=== PATIENT | female | born 1975 | race Two or more races ===

== ENCOUNTER 2017-11-02 07:44 | Outpatient (CLI) | payer OTHER ==
[~2017-11-02] VITALS: Ht 162.6 cm; Wt 108.9 kg
[2017-11-02] MEDS ORDERED: CEFUROXIME500 MG PO (09:57)
[2017-11-02] MEDS ORDERED: FLONASE16 GM NASAL (09:57)
== END 2017-11-02 08:00 | disposition home or self-care (01) ==
LOC: OFIC 805 07:44
DX: J32.8 Other chronic sinusitis (principal); J34.2 Deviated nasal septum; R43.8 Other disturbances of smell and taste; E04.8 Other specified nontoxic goiter

== ENCOUNTER 2017-12-14 07:15 | Outpatient (CLI) | payer OTHER ==
[~2017-12-14] VITALS: Ht 152.4 cm; Wt 108.9 kg
[~2017-12-14 07:15] MED LIST: CEFUROXIME500 MG PO; FLONASE16 GM NASAL
== END 2017-12-14 07:30 | disposition home or self-care (01) ==
LOC: OFIC 805 07:15
DX: J34.2 Deviated nasal septum (principal); R43.8 Other disturbances of smell and taste; E07.1 Dyshormogenetic goiter; J31.0 Chronic rhinitis

== ENCOUNTER → 2018-10-31 07:51 | Outpatient (CLI) | payer OTHER | END | disposition home or self-care (01) | LOC: LAB 07:51 | DX: I10 Essential (primary) hypertension (principal) ==

== ENCOUNTER → 2020-06-10 | Outpatient (CLI) | payer OTHER | END | disposition home or self-care (01) | LOC: LAB 08:51 | DX: G93.2 Benign intracranial hypertension (principal) ==